=== PATIENT | female | born 1980 | race Two or more races ===

== ENCOUNTER 2021-12-24 08:34 | Outpatient (CLI) | payer OTHER | END 2021-12-24 08:46 | disposition home or self-care (01) | LOC: RX STUDY 08:34 | PROVIDERS: ATTEND Surgery | DX: K59.00 Constipation, unspecified (principal) ==

== ENCOUNTER 2021-12-26 07:08 | Outpatient (CLI) | payer OTHER | END 2021-12-26 07:25 | disposition home or self-care (01) | LOC: SONOGRAMA 07:08 | DX: R10.2 Pelvic and perineal pain (principal) ==

== ENCOUNTER 2022-03-22 10:09 | Outpatient (CLI) | payer OTHER | END 2022-03-22 10:25 | disposition home or self-care (01) | LOC: RAD 10:09 | PROVIDERS: ATTEND Surgery | DX: K59.00 Constipation, unspecified (principal) ==

== ENCOUNTER 2023-05-08 07:05 | Outpatient (CLI) | payer OTHER | END 2023-05-08 07:15 | disposition home or self-care (01) | LOC: TOM 07:05 | PROVIDERS: ATTEND Surgery | DX: R10.84 Generalized abdominal pain (principal) ==